=== PATIENT | female | born 1950 | race Caucasian/White ===

== ENCOUNTER 2021-07-08 14:50 | Inpatient (IN) | payer MEDICARE, MEDICAID ==
[~2021-07-08] VITALS: Ht 172.7 cm; Wt 81.6 kg
[2021-07-08 15:47] LABS: HEMOGLOBIN 13.3 gm/dl (12.3-15.3); RED BLOOD COUNT 4.4 M/UL (4.00-5.10); WHITE BLOOD COUNT 7.8 K/UL (4.5-11.0)
[2021-07-08 16:18] LABS: BUN/CREATININE RATIO 18 (0-10)
--- NOTE | 2021-07-08 22:51 | NUR ---
PATIENT WAS UNABLE TO VERIFY HOME MEDS AND DID NOT HAVE A LIST AVAILABLE. PATIENTS PRIMARY RN WILL MAKE ARRANGEMENTS FOR PHARMACY TO OBTAIN INFO.
[2021-07-09 06:36] LABS: HEMOGLOBIN 11.7 gm/dl (12.3-15.3); RED BLOOD COUNT 3.98 M/UL (4.00-5.10)
[2021-07-09] MEDS ORDERED: HYDROCODON-ACE1 EAC6 PO (10:11)
[2021-07-09] MEDS ORDERED: PLAVIX 75 MG TA75 MG PO (10:13)
[2021-07-09] MEDS ORDERED: VOLTAREN ARTHRI20 GM TOP (10:14)
[2021-07-09] MEDS ORDERED: ZETIA10 MG PO (10:14)
[2021-07-09] MEDS ORDERED: PEPCID40 MG PO (10:15)
[2021-07-09] MEDS ORDERED: HYDROXYZINE HCL25 MG PO (10:15)
[2021-07-09] MEDS ORDERED: PROZAC40 MG PO (10:15)
[2021-07-09] MEDS ORDERED: CLARITIN10 MG PO (10:16)
[2021-07-09] MEDS ORDERED: ZESTRIL 40 MG T40 MG PO (10:16)
[2021-07-09] MEDS ORDERED: LOPRESSOR 25 MG25 MG PO (10:17)
[2021-07-09] MEDS ORDERED: NIFEDIPINE ER30 M1 PO (10:17)
[2021-07-09] MEDS ORDERED: SINGULAIR10 MG PO (10:17)
[2021-07-09] MEDS ORDERED: OMEPRAZOLE20 MG PO (10:18)
[2021-07-09] MEDS ORDERED: CRESTOR5 MG PO (10:19)
[2021-07-09] MEDS ORDERED: ROPINIROLE HCL0.5 MG PO (10:19)
[2021-07-09] MEDS ORDERED: AMBIEN10 MG PO (10:20)
[2021-07-09] MEDS ORDERED: NASONEX17 GM (10:22)
[2021-07-09] MEDS ORDERED: HALOBETASOL PROP TOP (10:22)
[2021-07-09] MEDS ORDERED: ZANAFLEX4 MG PO (10:23)
[2021-07-10 05:00] LABS: HEMOGLOBIN 11.4 gm/dl (12.3-15.3); RED BLOOD COUNT 3.78 M/UL (4.00-5.10)
[2021-07-10 05:03] LABS: WHITE BLOOD COUNT 7.5 K/UL (4.5-11.0)
[2021-07-10 05:12] LABS: BUN/CREATININE RATIO 30 (0-10)
[2021-07-11 06:35] LABS: HEMOGLOBIN 11.6 gm/dl (12.3-15.3); RED BLOOD COUNT 3.87 M/UL (4.00-5.10); WHITE BLOOD COUNT 6.3 K/UL (4.5-11.0)
[2021-07-11 07:00] LABS: BUN/CREATININE RATIO 29 (0-10)
--- NOTE | 2021-07-11 12:38 | NUR ---
PT STATS 87% ON ROOM AIR
[2021-07-11] MEDS ORDERED: DECADRON6 MG PO (12:41)
== END 2021-07-11 14:34 | disposition home or self-care (01) | DRG 177 ==
LOC: ER1 14:50 → CDU 18:10 → MED SURG 4 18:10
PROVIDERS: Student in an Organized Health Care Education/Training Program; ADMIT Internal Medicine
PROC: 8E0ZXY6 Isolation (ICD-10-PCS; principal; 2021-07-08)
PROC: 3E0333Z Introduction of Anti-inflammatory into Peripheral Vein, Percutaneous Approach (ICD-10-PCS; 2021-07-08)
PROC: XW033E5 Introduction of Remdesivir Anti-infective into Peripheral Vein, Percutaneous Approach, New Technology Group 5 (ICD-10-PCS; 2021-07-08)
DX: U07.1 COVID-19 (principal); J12.82 Pneumonia due to coronavirus disease 2019; J96.01 Acute respiratory failure with hypoxia; N17.9 Acute kidney failure, unspecified; E87.6 Hypokalemia; K25.9 Gastric ulcer, unspecified as acute or chronic, without hemorrhage or perforation; N18.9 Chronic kidney disease, unspecified; R94.31 Abnormal electrocardiogram [ECG] [EKG]; E87.5 Hyperkalemia; E78.5 Hyperlipidemia, unspecified; E86.1 Hypovolemia; R03.0 Elevated blood-pressure reading, without diagnosis of hypertension; K27.9 Peptic ulcer, site unspecified, unspecified as acute or chronic, without hemorrhage or perforation; K21.9 Gastro-esophageal reflux disease without esophagitis; I12.9 Hypertensive chronic kidney disease with stage 1 through stage 4 chronic kidney disease, or unspecified chronic kidney disease; Z99.81 Dependence on supplemental oxygen; Z85.3 Personal history of malignant neoplasm of breast; Z98.890 Other specified postprocedural states; Z79.899 Other long term (current) drug therapy
CPT/HCPCS: 36415; 36600; 71045; 71275; 80053; 82550; 82553; 82803; 83036; 83605; 83735; 83874; 84484; 85025; 85027; 85379; 87040; 93005; 93970; 94640; 94664; 94760; 96374; 96375; 99285; J0248; J0456; J0696; J1100; J1650; J7030; Q9967; U0002